=== PATIENT | female | born 1945 | race African-American/Black ===

== ENCOUNTER 2016-10-03 08:56 | Outpatient (CLI) | payer MEDICARE, OTHER ==
[2016-10-03 09:22] LABS: Hemoglobin A1c 5.3 % (4.0-6.0)
[2016-10-03 09:32] LABS: ALT (SGPT) 15 U/L (8-55); AST (SGOT) 20 U/L (5-34); Albumin 3.6 g/dL (3.4-4.8); Alkaline Phosphatase 74 U/L (40-150); Anion Gap 12 mmol/L (10-20); BUN (Urea Nitrogen) 15 mg/dL (9.8-20.1); Bilirubin, Total 0.4 mg/dL (0.2-1.2); Calc. Creatinine Clearance 0 mL/min (70-130); Calcium 8.9 mg/dL (7.8-10.44); Carbon Dioxide 29 mmol/L (23-31); Cardiac Risk 3.6 (Less than 4.5); Chloride 105 mmol/L (98-107); Cholesterol 212 mg/dl (< 200 Desired); Estimated GFR-MDRD 87; Globulin 3.2 g/dL (2.4-3.5); Glucose 100 mg/dL (80-115); HDL Cholesterol 59 mg/dL (>60 Neg Risk); LDL Cholesterol, Calculated 139 mg/dL; Protein, Total 6.8 g/dL (6.0-8.3); Sodium 142 mmol/L (136-145); Triglycerides 72 mg/dL (Less than 150)
== END 2016-10-03 08:57 | disposition home or self-care (01) ==
LOC: MADLABBHPM 08:56
PROVIDERS: ATTEND Family Medicine
DX: E78.2 Mixed hyperlipidemia (principal); I10 Essential (primary) hypertension; Z68.37 Body mass index [BMI] 37.0-37.9, adult
CPT/HCPCS: 36415; 80053; 80061; 83036

== ENCOUNTER 2019-09-01 10:54 | Outpatient (CLI) | payer MEDICARE ==
--- NOTE | 2019-09-01 12:40 | RAD ---
2 VIEW CHEST: Date: 09/01/2019 HISTORY: Dyspnea. FINDINGS: Lung morales are clear of infiltrate. Heart and mediastinum unremarkable. Vascular markings normal. Os seous structures unremarkable. IMPRESSION: No acute findings. POS: [facility]
== END 2019-09-01 10:55 | disposition home or self-care (01) ==
LOC: MADRAD 10:54
PROVIDERS: ATTEND Internal Medicine Pulmonary Disease
DX: R06.00 Dyspnea, unspecified (principal)
CPT/HCPCS: 71046

== ENCOUNTER 2019-12-01 08:31 | Outpatient (CLI) | payer MEDICARE, OTHER ==
[2019-12-02 18:55] LABS: SARS-CoV-2 MS2 Positive; SARS-CoV-2 N Gene Negative; SARS-CoV-2 S Gene Negative; SARS-CoV-2 by NAA Not Detected (NotDetected); SARS-CoV-2 orf1ab Negative
== END 2019-12-01 08:32 | disposition home or self-care (01) ==
LOC: MADLAB 08:31
PROVIDERS: ATTEND Internal Medicine Critical Care Medicine
DX: Z01.812 Encounter for preprocedural laboratory examination (principal); Z11.59 Encounter for screening for other viral diseases; G47.33 Obstructive sleep apnea (adult) (pediatric)
CPT/HCPCS: 87635; U0003

== ENCOUNTER 2019-12-26 12:16 | Outpatient (CLI) | payer MEDICARE, OTHER ==
--- NOTE | 2019-12-26 13:10 | RAD ---
RIGHT HIP 2 VIEWS: HISTORY: Right hip pain. FINDINGS/IMPRESSION: No acute fracture or dislocation is seen. There are mild degenerative changes in the right hip. The re is an ossific density superior to the greater trochanter likely due to heterotopic ossification. POS: [facility]
--- NOTE | 2019-12-26 13:12 | RAD ---
AP PELVIS: HISTORY: Acute pelvic pain. FINDINGS/IMPRESSION: There are degenerative changes in the hip joints. No acute fracture, dislocation, or bony destructio n is seen. 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 POS: [facility]
== END 2019-12-26 12:17 | disposition home or self-care (01) ==
LOC: MADRAD 12:16
PROVIDERS: ATTEND Family Medicine
DX: M25.551 Pain in right hip (principal); M16.0 Bilateral primary osteoarthritis of hip
CPT/HCPCS: 72170

== ENCOUNTER 2024-12-02 10:02 | Outpatient (CLI) | payer OTHER | END 2024-12-02 10:03 | disposition home or self-care (01) | LOC: MADLAB 10:02 | PROVIDERS: ATTEND Family Medicine | DX: M17.11 Unilateral primary osteoarthritis, right knee (principal) ==